=== PATIENT | female | born 1965 | race African-American/Black ===

== ENCOUNTER 2016-11-28 07:25 | Emergency (ER) | payer MEDICAID, OTHER ==
[~2016-11-28] VITALS: Ht 167.6 cm; Wt 106.0 kg
[~2016-11-28 07:25] MED LIST: HCTZ
[2016-11-28] MEDS ORDERED: KETOROLAC 60MG/2ML VIAL IM ONE (10:45)
[2016-11-28 11:13] VITALS: BP 121/76
== END 2016-11-28 12:50 | disposition home or self-care (01) ==
LOC: ER 07:31
DX: M25.571 Pain in right ankle and joints of right foot (principal); I10 Essential (primary) hypertension; E78.00 Pure hypercholesterolemia, unspecified; E11.9 Type 2 diabetes mellitus without complications
CPT/HCPCS: 29515; 73610; 96372; 99284; J1885

== ENCOUNTER 2023-01-07 10:19 | Emergency (ER) | payer OTHER ==
[~2023-01-07] VITALS: Ht 167.6 cm; Wt 124.7 kg
[2023-01-07 10:39] VITALS: BP 179/105; PULSE 115; RESP 18; TEMP 98.4; O2SAT 100
[2023-01-07] MEDS ORDERED: SUCRALFATE 1 G/10 ML UDC PO ONE (12:30)
[2023-01-07] MEDS ORDERED: SUCR1TAB30 MT (12:35)
[2023-01-07] MEDS ORDERED: SUCRALFATE 1 G/10 ML UDC PO SCH (13:00)
== END 2023-01-07 12:58 | disposition home or self-care (01) ==
LOC: ER 10:19
DX: K20.90 Esophagitis, unspecified without bleeding (principal); E11.9 Type 2 diabetes mellitus without complications; I10 Essential (primary) hypertension; E78.00 Pure hypercholesterolemia, unspecified
CPT/HCPCS: 99283